=== PATIENT | female | born 1930 | race Caucasian/White ===

== ENCOUNTER 2019-09-01 15:03 | Inpatient (IN) ==
[2019-09-01] MEDS ORDERED: Diltiazem IV push/loading dose 5 MG/ML 5 ML vial (25 mg) IV SLOW PU ONE ×2 (15:14→15:44)
[2019-09-01 15:37] LABS: ABS Basophils 0.1 10^3/ul (0-0.2); ABS Eosinophils 0.1 10^3/ul (0-0.6); ABS Lymphocytes 1.9 10^3/ul (1.0-4.8); ABS Monocytes 1.1 10^3/ul (0-0.8); ABS Neutrophils 7.2 10^3/ul (1.5-7.7); Eosinophil % 1.3 %; Hematocrit 45 % (35-47); Hemoglobin 15.3 g/dL (12.0-16.0); Lymphocyte % 18.2 %; Mean Corpuscular HGB Conc 34 g/dL (31-36); Mean Corpuscular Hemoglobin 30 pg (27-31); Mean Corpuscular Volume 87 fL (80-97); Mean Platelet Volume 7.4 fL (7.4-10.4); Nucleated Red Blood Cells % 0.2; Platelet Count 445 10^3/uL (150-450); Red Blood Count 5.16 10^6 /uL (3.70-4.87); Red Cell Distribution Width 16 % (10-15); White Blood Count 10.3 10^3/uL (3.5-10.8)
[2019-09-01 15:55] LABS: ALT 35 U/L (7-52); Albumin/Globulin Ratio 1.2 (1-3); Alkaline Phosphatase 81 U/L (34-104); BUN/Creatinine Ratio 27.8 (8-20); Blood Urea Nitrogen 20 mg/dL (6-24); CO2 Carbon Dioxide 28 mmol/L (22-32); Calcium 9.9 mg/dL (8.6-10.3); Chloride 94 mmol/L (101-111); EGFR African American 92.3 (>60); EGFR Non-African American 76.3 (>60); Globulin 3.4 g/dL (2-4); Glucose 123 mg/dL (70-100); Sodium 134 mmol/L (135-145); Total Protein 7.4 g/dL (6.4-8.9)
[2019-09-01 15:57] LABS: Troponin I 0.45 ng/mL (<0.03)
[2019-09-01 15:59] LABS: Anion Gap 12 mmol/L (2-11)
[2019-09-01] MEDS ORDERED: Heparin 5000 UNITS/ML 1 mL VIAL IV SCH (16:00)
[2019-09-01] MEDS ORDERED: Heparin DRIP 25,000 UNITS BAG 25,000 UNITS/500 ML BAG IV SCH ×2 (16:00→20:30)
[2019-09-01] MEDS ORDERED: Diltiazem IV BAG D5W Premix 125 MG/125 ML BAG IV SCH ×2 (16:00→18:00)
[2019-09-01 16:03] LABS: T4, Total 11.04 mcg/dL (6.09-12.23)
[2019-09-01 16:10] LABS: TSH Ultra Thyroid Stim Horm 5.17 mcIU/mL (0.34-5.60)
[2019-09-01] MEDS ORDERED: Morphine 4 MG/ML VIAL (1 ml) IV ONE (16:45)
[2019-09-01] MEDS ORDERED: Ondansetron 4 mg VIAL 2 MG/ML 2 ml VIAL IV ONE (16:45)
[2019-09-01] MEDS ORDERED: Senna TAB 8.6 mg TAB PO PRN (16:58)
[2019-09-01] MEDS ORDERED: Magnesium Hydroxide LIQ 30 ML UDC PO PRN (16:58)
[2019-09-01 17:14] LABS: Blood Urea Nitrogen 21 mg/dL (6-24); EGFR African American 100.3 (>60); EGFR Non-African American 82.9 (>60); Magnesium 2.2 mg/dL (1.9-2.7)
[2019-09-01] MEDS: NS 0.9% 1000 ml BAG 1,000 ML IV SCH (17:48)
[2019-09-01 18:01] LABS: ABS Lymphocytes 0.7 10^3/ul (1.0-4.8); ABS Monocytes 0.6 10^3/ul (0-0.8); ABS Neutrophils 9.4 10^3/ul (1.5-7.7); Eosinophil % 0.4 %; Hematocrit 36 % (35-47); Hemoglobin 12.2 g/dL (12.0-16.0); Lymphocyte % 6.9 %; Mean Corpuscular HGB Conc 34 g/dL (31-36); Mean Corpuscular Hemoglobin 30 pg (27-31); Mean Corpuscular Volume 88 fL (80-97); Mean Platelet Volume 7.4 fL (7.4-10.4); Platelet Count 355 10^3/uL (150-450); Red Blood Count 4.11 10^6 /uL (3.70-4.87); Red Cell Distribution Width 15 % (10-15); White Blood Count 10.8 10^3/uL (3.5-10.8)
[2019-09-01] MEDS ORDERED: Iohexol 300 (CONTRAST) 10 ML SDV IV ONE (19:11)
[2019-09-01 21:41] LABS: AST Redraw 26 U/L (13-39)
[2019-09-01 21:43] LABS: Potassium Redraw 2.2 mmol/L (3.5-5.0)
[2019-09-01 21:49] LABS: Troponin I 0.52 ng/mL (<0.03)
[2019-09-01] MEDS: KCL 20 MEQ/100 ML IVPREMIX 20 MEQ/100 ML BAG IV SCH (22:08)
[2019-09-02] MEDS: KCL 20 MEQ/100 ML IVPREMIX 20 MEQ/100 ML BAG IV SCH (00:30)
[2019-09-02 04:22] LABS: ABS Lymphocytes 1.2 10^3/ul (1.0-4.8); ABS Monocytes 0.5 10^3/ul (0-0.8); ABS Neutrophils 5.1 10^3/ul (1.5-7.7); Eosinophil % 0.6 %; Hematocrit 35 % (35-47); Lymphocyte % 17.3 %; Mean Corpuscular HGB Conc 34 g/dL (31-36); Mean Corpuscular Hemoglobin 30 pg (27-31); Mean Corpuscular Volume 87 fL (80-97); Mean Platelet Volume 7.1 fL (7.4-10.4); Nucleated Red Blood Cells % 0.1; Platelet Count 380 10^3/uL (150-450); Red Blood Count 4.05 10^6 /uL (3.70-4.87); Red Cell Distribution Width 16 % (10-15)
[2019-09-02 04:39] LABS: Anion Gap 6 mmol/L (2-11); BUN/Creatinine Ratio 32.8 (8-20); Blood Urea Nitrogen 19 mg/dL (6-24); CO2 Carbon Dioxide 28 mmol/L (22-32); Calcium 8.2 mg/dL (8.6-10.3); Chloride 100 mmol/L (101-111); EGFR African American 118.4 (>60); EGFR Non-African American 97.9 (>60); Glucose 117 mg/dL (70-100); Magnesium 1.9 mg/dL (1.9-2.7); Potassium 3.8 mmol/L (3.5-5.0); Sodium 134 mmol/L (135-145)
[2019-09-02] MEDS: Polyethylene Glycol 3350 17 GM PACKET PO SCH (08:14)
[2019-09-02] MEDS: Cholecalciferol (VIT D3) 1,000 unit TAB PO SCH (08:14)
[2019-09-02] MEDS ORDERED: Heparin 5000 UNITS/ML 1 mL VIAL IV PRN (08:30)
[2019-09-02 11:31] LABS: Troponin I 0.52 ng/mL (<0.03)
[2019-09-02 12:04] LABS: Troponin I 0.42 ng/mL (<0.03)
[2019-09-02 12:43] LABS: Vitamin B12 636 pg/mL (180-914)
[2019-09-02] MEDS: NS 0.9% 1000 ml BAG 1,000 ML IV SCH ×2 (13:31→18:13)
[2019-09-03] MEDS ORDERED: Magnesium Sulfate 2 GM IV (Premix) IVPB ONE (01:12)
[2019-09-03] MEDS ORDERED: Magnesium Sulfate 2 gm BAG 2 GM/50 ML BAG ONE (01:26)
[2019-09-03 04:23] LABS: Potassium 4.4 mmol/L (3.5-5.0)
[2019-09-03 04:24] LABS: Calcium 8.7 mg/dL (8.6-10.3); Magnesium 1.8 mg/dL (1.9-2.7)
[2019-09-03 04:25] LABS: BUN/Creatinine Ratio 29.8 (8-20); EGFR African American 120.8 (>60); EGFR Non-African American 99.9 (>60)
[2019-09-03 07:09] LABS: ABS Basophils 0.1 10^3/ul (0-0.2); ABS Eosinophils 0.2 10^3/ul (0-0.6); ABS Lymphocytes 1.1 10^3/ul (1.0-4.8); ABS Monocytes 0.6 10^3/ul (0-0.8); ABS Neutrophils 6.6 10^3/ul (1.5-7.7); Eosinophil % 1.8 %; Hematocrit 36 % (35-47); Hemoglobin 12.6 g/dL (12.0-16.0); Lymphocyte % 13.4 %; Mean Corpuscular HGB Conc 35 g/dL (31-36); Mean Corpuscular Hemoglobin 30 pg (27-31); Mean Corpuscular Volume 87 fL (80-97); Mean Platelet Volume 7.1 fL (7.4-10.4); Platelet Count 383 10^3/uL (150-450); Red Cell Distribution Width 16 % (10-15); White Blood Count 8.6 10^3/uL (3.5-10.8)
[2019-09-03 07:31] LABS: Calcium 8.5 mg/dL (8.6-10.3); EGFR African American 125.9 (>60); EGFR Non-African American 104.1 (>60); Magnesium 2.4 mg/dL (1.9-2.7); Potassium 3.6 mmol/L (3.5-5.0)
[2019-09-03] MEDS ORDERED: Potassium Chlor 20 meq TAB.ER PO ONE ×2 (08:39→11:00)
[2019-09-03] MEDS: Cholecalciferol (VIT D3) 1,000 unit TAB PO SCH (08:57)
[2019-09-03] MEDS: Polyethylene Glycol 3350 17 GM PACKET PO SCH (08:58)
[2019-09-04 06:08] LABS: ABS Basophils 0.1 10^3/ul (0-0.2); ABS Eosinophils 0.2 10^3/ul (0-0.6); ABS Lymphocytes 1.4 10^3/ul (1.0-4.8); ABS Monocytes 0.6 10^3/ul (0-0.8); ABS Neutrophils 4.3 10^3/ul (1.5-7.7); Eosinophil % 3.1 %; Hematocrit 36 % (35-47); Hemoglobin 12.1 g/dL (12.0-16.0); Lymphocyte % 21.2 %; Mean Corpuscular HGB Conc 34 g/dL (31-36); Mean Corpuscular Hemoglobin 29 pg (27-31); Mean Corpuscular Volume 87 fL (80-97); Mean Platelet Volume 7.3 fL (7.4-10.4); Platelet Count 402 10^3/uL (150-450); Red Blood Count 4.14 10^6 /uL (3.70-4.87); Red Cell Distribution Width 15 % (10-15); White Blood Count 6.6 10^3/uL (3.5-10.8)
[2019-09-04 06:27] LABS: BUN/Creatinine Ratio 20.8 (8-20); Calcium 8.8 mg/dL (8.6-10.3); EGFR African American 147.3 (>60); EGFR Non-African American 121.8 (>60); Magnesium 1.9 mg/dL (1.9-2.7); Potassium 3.7 mmol/L (3.5-5.0)
[2019-09-04] MEDS ORDERED: Potassium Chlor 20 meq TAB.ER PO ONE (07:53)
[2019-09-04] MEDS ORDERED: Multivitamins/Minerals TAB PO SCH (09:00)
[2019-09-04] MEDS: Cholecalciferol (VIT D3) 1,000 unit TAB PO SCH (09:37)
[2019-09-04 10:37] VITALS: BP 178/90
== END 2019-09-04 11:05 | disposition home or self-care (01) | DRG 280 ==
LOC: ED 15:03 → ICU 16:46 → MEDTELE 09-02 12:47
PROVIDERS: ADMIT Surgery Surgical Critical Care; ATTEND Internal Medicine